=== PATIENT | male | born 1970 | race Caucasian/White ===

== ENCOUNTER 2016-07-31 19:15 | Emergency (ER) | payer SELFPAY ==
[2016-07-31 21:04] LABS: BASOPHIL % 0.4 % (0-2); PLATELET COUNT 362 x10^3mcL (130-400)
[2016-07-31 21:11] LABS: RED CELL DISTRIBUTION WIDTH 14.6 % (11.5-14.5)
[2016-07-31 21:23] LABS: ALBUMIN 3.8 g/dL (3.4-5.0); ALKALINE PHOSPHATASE 107 U/L (46-116); ALT/SGPT 47 U/L (16-63); AMYLASE 44 U/L (25-115); AST/SGOT 23 U/L (15-37); BILIRUBIN TOTAL 0.27 mg/dL (0.20-1.00); CALCIUM 9.1 mg/dL (8.5-10.1); CARBON DIOXIDE 23.4 mmol/L (21-32); CHLORIDE SERUM 104 mmol/L (98-107); CREATININE SERUM 0.8 mg/dL (0.7-1.3); GFR1 > 60 mL/min; GLUCOSE SERUM 104 mg/dL (74-106); LIPASE 144 IU/L (73-393); POTASSIUM SERUM 3.9 mmol/L (3.5-5.1); SODIUM SERUM 139 mmol/L (136-145); TOTAL PROTEIN, SERUM 7.5 g/dL (6.4-8.2)
[2016-07-31 22:43] VITALS: BP 156/93
== END 2016-07-31 22:43 | disposition home or self-care (01) ==
LOC: ED 19:15
PROVIDERS: Emergency Medicine
DX: R10.13 Epigastric pain (principal); R22.0 Localized swelling, mass and lump, head; J45.909 Unspecified asthma, uncomplicated
CPT/HCPCS: 36415; J2270; Q0162